=== PATIENT | female | born 1945 | race Caucasian/White ===

== ENCOUNTER 2017-02-18 09:30 | Inpatient (IN) | payer MEDICARE, BC ==
[~2017-02-18 09:30] MED LIST: ACETAMINOPHEN325 M2 PO; ACTIVASE50 MG IV; AMINO ACIDS IV; ATIVAN0.5 M1 IV; BACLOFEN10 MG PO; BACTROBAN22 GM TOP; CALAZIME TOP; CEFDINIR300 M1 PO; CHOLESTYRAMIN4 G/PKT PO; CIPRO500 MG; CIPROFLOXACIN500 MG PO; COMBIVENT RESPIM4 G1 AERO NEB; CUBICIN500 MG IV; CULTURELLE1 CA1 PO; DIFLUCAN100 M1 PO; DIFLUCAN100 MG PO; DOXYCYCLINE HY100 MG PO; ENEMEEZ PLUS MIN5 ML RC; FEOSOL325 M1 PO; FEOSOL325 MG PO; IRON325 M2 PO; KEFLEX500 M4 PO; KEFLEX500 MG PO; LASIX20 M1 PO; MAALOX MAXIMUM355 M1 PO; MACRODANTIN100 MG PO; MERREM500 MG IV; NO HOME MEDICATION XX; OCEAN45 ML; OXANDRIN10 MG PO; PERCOCET 5-3251 EACH PO; PHOSLO667 M PO; PRENATAL-U CAPS1 CAP PO; SANTYL30 GM TOP; SENOKOT-S (SENN1 TAB PO; SENOKOT-S TABL1 EACH PO; SODIUM CHLORIDE10 M2 IV; SODIUM CHLORIDE20 M3 IV; TYLENOL325 M2 PO; TYLENOL500 MG PO; VANCOMYCIN750 MG/152 IV; VITAMIN C500 M3 PO; VITAMIN D31000 UNI2 PO; VITAMIN D31000 UNI4 PO; XOPENEX1.25 MG/2 AERO NEB; [UNRECOGNIZED DRUG - OTHER] PO; [UNRECOGNIZED DRUG - OTHER] PO; [UNRECOGNIZED DRUG - REMARK] PO
[2017-02-18] MEDS ORDERED: CLEOCIN HCL300 M1 PO (10:06)
[2017-02-18] MEDS ORDERED: POTASSIUM CHLO10 ME2 PO (10:06)
[2017-02-18] MEDS ORDERED: POTASSIUM 20MEQ/15ML PO (18:20)
[2017-02-18 19:07] LABS: BASO % 0.3 % (0-2); EOSINOPHIL ABSOLUTE COUNT 0.2 tho/cmm (0.0-0.7); HCT-HEMATOCRIT 31.9 % (34.0-49.0); HGB-HEMOGLOBIN 10.1 gm/dl (12.0-15.5); IMMATURE GRANULOCYTES ABSOLUTE 0.01 tho/cmm (0-0.03); IMMATURE GRANULOCYTES PERCENT 0.1 % (0-0.3); LYMPH % 28.8 % (20-45); LYMPH ABSOLUTE COUNT 2.5 tho/cmm (0.8-4.5); MCH (MEAN CORPUSCULAR HGB) 29.6 pg (28.0-32.0); MCHC MEAN CORPUSCULAR HGB CONC 31.7 % (32.0-36.0); MCV (MEAN CELL VOLUME) 93.5 fl (82.0-96.0); MEAN PLATELET VOLUME 9.9 cmc (9.4-12.4); MONO % 5.8 % (0-12); MONOCYTE ABSOLUTE COUNT 0.5 tho/cmm (0.0-1.2); NEUTROPHIL ABSOLUTE COUNT 5.5 tho/cmm (1.6-8.0); NEUTROPHIL-AUTOMATED 5.5 tho/cmm (1.6-8.0); PLATELET COUNT 320 tho/cmm (150-450); RED BLOOD COUNT 3.41 mil/cmm (4.00-5.20); RED CELL DISTRIBUTION WIDTH 16.6 % (12.4-16.4); WHITE BLOOD COUNT 8.8 tho/cmm (4.0-10.0)
[2017-02-18 19:12] LABS: PROTHROMBIN TIME 11.2 SECONDS (9.0-13.6)
[2017-02-18 19:19] LABS: ANION GAP 13 mmol/L (0-20); BLOOD UREA NITROGEN 15 mg/dl (6-24); CALCIUM 8.8 mg/dl (8.5-10.5); CARBON DIOXIDE-VENOUS 26 mmol/L (22-32); CHLORIDE 106 mmol/l (96-110); CREATININE 0.77 mg/dl (0.50-1.10); GLUCOSE 93 mg/dL (70-110); POTASSIUM 4.2 mmol/L (3.7-5.1); SODIUM 141 mmol/L (135-145); eGFR VALUE FOR BLACK >90 mL/Min
[2017-02-20 05:53] LABS: BASO % 0.4 % (0-2); EOS % 5.1 % (0-7); EOSINOPHIL ABSOLUTE COUNT 0.3 tho/cmm (0.0-0.7); HGB-HEMOGLOBIN 9.3 gm/dl (12.0-15.5); IMMATURE GRANULOCYTES ABSOLUTE 0.01 tho/cmm (0-0.03); IMMATURE GRANULOCYTES PERCENT 0.2 % (0-0.3); LYMPH % 19.6 % (20-45); LYMPH ABSOLUTE COUNT 1.1 tho/cmm (0.8-4.5); MCH (MEAN CORPUSCULAR HGB) 29.6 pg (28.0-32.0); MCHC MEAN CORPUSCULAR HGB CONC 32.1 % (32.0-36.0); MCV (MEAN CELL VOLUME) 92.4 fl (82.0-96.0); MEAN PLATELET VOLUME 9.8 cmc (9.4-12.4); MONOCYTE ABSOLUTE COUNT 0.3 tho/cmm (0.0-1.2); NEUTROPHIL ABSOLUTE COUNT 3.9 tho/cmm (1.6-8.0); NEUTROPHIL-AUTOMATED 3.9 tho/cmm (1.6-8.0); NEUTROPHILS % 68.7 % (40-80); PLATELET COUNT 255 tho/cmm (150-450); RED BLOOD COUNT 3.14 mil/cmm (4.00-5.20); RED CELL DISTRIBUTION WIDTH 16.5 % (12.4-16.4); WHITE BLOOD COUNT 5.7 tho/cmm (4.0-10.0)
[2017-02-20 06:08] LABS: ALB/GLOB RATIO 0.6 (0.8-2.0); ALKALINE PHOSPHATASE 95 U/L (33-138); ALT/SGPT 17 U/L (12-78); ANION GAP 13 mmol/L (0-20); AST/SGOT 13 U/L (10-40); BILIRUBIN,TOTAL 0.3 mg/dl (0-1.5); BLOOD UREA NITROGEN 10 mg/dl (6-24); CALCIUM 7.9 mg/dl (8.5-10.5); CARBON DIOXIDE-VENOUS 24 mmol/L (22-32); CHLORIDE 109 mmol/l (96-110); CREATININE 0.69 mg/dl (0.50-1.10); GLUCOSE 91 mg/dL (70-110); POTASSIUM 3.6 mmol/L (3.7-5.1); SODIUM 142 mmol/L (135-145); eGFR VALUE FOR BLACK >90 mL/Min
[2017-02-20 06:12] LABS: ALBUMIN 2.3 g/dl (3.5-5.0)
[2017-02-20 06:15] LABS: PREALBUMIN 13.7 mg/dl (20.0-40.0)
[2017-02-20 06:50] LABS: PROCALCITONIN 0.12 ng/ml (0.05-0.09)
== END 2017-02-21 17:26 | disposition home health service (06) | DRG 264 ==
LOC: WCC 09:30 → BURN 17:17 → PACU 02-20 13:56 → BURN 02-20 14:53
PROVIDERS: Internal Medicine Infectious Disease; ADMIT Surgery
PROC: 0JB90ZZ Excision of Buttock Subcutaneous Tissue and Fascia, Open Approach (ICD-10-PCS; principal; 2017-02-20)
PROC: 0YBN0ZZ Excision of Left Foot, Open Approach (ICD-10-PCS; 2017-02-20)
PROC: 0HBLXZZ Excision of Left Lower Leg Skin, External Approach (ICD-10-PCS; 2017-02-20)
PROC: 0HRNX74 Replacement of Left Foot Skin with Autologous Tissue Substitute, Partial Thickness, External Approach (ICD-10-PCS; 2017-02-20)
DX: I96 Gangrene, not elsewhere classified (principal); L89.324 Pressure ulcer of left buttock, stage 4; G82.20 Paraplegia, unspecified; B96.4 Proteus (mirabilis) (morganii) as the cause of diseases classified elsewhere; J98.4 Other disorders of lung; L89.623 Pressure ulcer of left heel, stage 3; Z89.422 Acquired absence of other left toe(s); Z89.421 Acquired absence of other right toe(s); I10 Essential (primary) hypertension; N31.9 Neuromuscular dysfunction of bladder, unspecified; Z93.3 Colostomy status; D63.8 Anemia in other chronic diseases classified elsewhere; Z88.3 Allergy status to other anti-infective agents; Z88.1 Allergy status to other antibiotic agents; Z91.041 Radiographic dye allergy status; Z88.0 Allergy status to penicillin; Z88.2 Allergy status to sulfonamides; Z88.5 Allergy status to narcotic agent; Z91.09 Other allergy status, other than to drugs and biological substances; Z91.018 Allergy to other foods
CPT/HCPCS: G0463; J0171; J3370; J7999